=== PATIENT | male | born 1970 | race Caucasian/White ===

== ENCOUNTER 2016-10-03 07:32 | Emergency (ER) | payer OTHER ==
[~2016-10-03] VITALS: Ht 177.8 cm; Wt 123.2 kg
[2016-10-03 07:34] VITALS: TEMP 36.6; Ht 177.8 cm; Wt 123.2 kg
[2016-10-03] MEDS ORDERED: DiphenhydrAMINE HCL 50 MG/ML VIAL IV STA (07:47)
[2016-10-03] MEDS ORDERED: DEXAMETHASONE SOD INJ 10 MG/ML VIAL IV ONE (08:00)
[2016-10-03 08:04] LABS: BASO % 0.3 %; BASO ABS # 0.02 K/uL (0-0.2); COMPLETE YES; EOS % 5.6 %; HEMATOCRIT 44.6 % (42-52); IG% 0.3 %; LYMPH % 31.8 %; LYMPH ABS # 2.45 K/uL (1.2-3.4); MEAN CELL VOLUME 92.5 fL (80-100); MEAN CORPUSCULAR HEMOGLOBIN 31.1 pg (25-34); MEAN CORPUSCULAR HGB CONC 33.6 g/dl (32-36); MEAN PLATELET VOLUME 9.4 fL (7.4-10.4); MONO % 5.6 %; NEUT % 56.4 %; PLATELET COUNT 266 K/uL (130-400); RED BLOOD COUNT 4.82 M/uL (4.7-6.1)
[2016-10-03] MEDS ORDERED: CLON0.5T3 PO (08:12)
[2016-10-03] MEDS ORDERED: CITA20TA9 PO (08:12)
[2016-10-03] MEDS ORDERED: HYDR-5688 PO (08:12)
[2016-10-03 08:21] LABS: BUN/CREATININE RATIO 18.7 (10-20); CALCIUM 9.2 mg/dl (8.5-10.1); CREATININE 0.9 mg/dl (0.60-1.40)
[2016-10-03] MEDS ORDERED: METH4PAK PO (09:11)
--- NOTE | 2016-10-03 09:12 | EMERGENCY ROOM VISIT NOTE ---
History First contact with patient: 07:40 Chief Complaint: THROAT PAIN/INJURY Stated Complaint: SWOLLEN THROAT, CAN'T BREAHTE History of Present Illness The patient is a 46 year old male who presents to the Emergency Room with complaints of swelling uvula. The patient states when he woke up this morning and felt like he had a sore throat. Then approximately an hour later he felt like he had phlegm in his throat but when he looked in his throat he noticed that his uvula was swollen. He states that it is hitting the back of his tongue and he feels like he can't breathe. The patient denies any other upper respiratory symptoms of ear pain, cough, chest tightness, fever. The patient denies any known allergies. The patient's only difference that he ate some [place] food last evening. The patient is not diabetic. Review of Systems 10 system review was performed and was negative unless stated otherwise history of present illness. Past Medical/Surgical History Knee surgery Social History Smoking Status: Never Smoker Marital Status: Housing Status: lives with family Current/Historical Medications Scheduled Citalopram Hydrobromide (Celexa), 20 MG PO QAM Clonazepam (Klonopin), 0.5 MG PO QAM Scheduled PRN Hydrocodone/Acetaminophen 5MG/325MG ([place] 5MG/325MG), 1 TABLET PO Q6 PRN for Pain Allergies Coded Allergies: No Known Allergies (Unverified , 10/03/16) Physical Exam Vital Signs Date Time Temp Pulse Resp B/P Pulse Ox O2 Delivery O2 Flow Rate FiO2 10/03/16 07:34 36.6 90 20 137/96 96 Room Air Physical Exam PHYSICAL EXAM: Vital Signs were reviewed: Reviewed Nurse's notes and agree. Oxygen saturation is 96 % on room air which is normal . GENERAL: 46-year-old male appears in no acute distress. MENTAL STATUS: Alert, oriented, coherent. EARS: Canals clear. TMs good light reflex, no erythema or fluid level noted. NOSE: Nasal mucosa with moderate erythema engorgement. PHARYNX: Tonsils with 1+ edema and erythema. No exudate noted. Uvula with edema and erythema. Airway is adequate. NECK: Supple, non-tender. No lymphadenopathy noted. LUNGS: Clear to auscultation without wheezes rales or rhonchi. CARDIAC: Regular rate and rhythm without murmur. SKIN: No rashes noted. Medical Decision & Procedures Laboratory Results 10/03/16 07:50 Red Blood Count 4.82, Mean Corpuscular Volume 92.5, Mean Corpuscular Hemoglobin 31.1, Mean Corpuscular Hemoglobin Concent 33.6, Mean Platelet Volume 9.4, Neutrophils (%) (Auto) 56.4, Lymphocytes (%) (Auto) 31.8, Monocytes (%) (Auto) 5.6, Eosinophils (%) (Auto) 5.6, Basophils (%) (Auto) 0.3, Neutrophils # (Auto) 4.35, Lymphocytes # (Auto) 2.45, Monocytes # (Auto) 0.43, Eosinophils # (Auto) 0.43, Basophils # (Auto) 0.02 10/03/16 07:50 Test 10/03/16 07:50 White Blood Count 7.70 K/uL (4.8-10.8) Red Blood Count 4.82 M/uL (4.7-6.1) Hemoglobin 15.0 g/dL (14.0-18.0) Hematocrit 44.6 % (42-52) Mean Corpuscular Volume 92.5 fL (80-100) Mean Corpuscular Hemoglobin 31.1 pg (25-34) Mean Corpuscular Hemoglobin Concent 33.6 g/dl (32-36) Platelet Count 266 K/uL (130-400) Mean Platelet Volume 9.4 fL (7.4-10.4) Neutrophils (%) (Auto) 56.4 % Lymphocytes (%) (Auto) 31.8 % Monocytes (%) (Auto) 5.6 % Eosinophils (%) (Auto) 5.6 % Basophils (%) (Auto) 0.3 % Neutrophils # (Auto) 4.35 K/uL (1.4-6.5) Lymphocytes # (Auto) 2.45 K/uL (1.2-3.4) Monocytes # (Auto) 0.43 K/uL (0.11-0.59) Eosinophils # (Auto) 0.43 K/uL (0-0.5) Basophils # (Auto) 0.02 K/uL (0-0.2) RDW Standard Deviation 46.6 fL (36.4-46.3) RDW Coefficient of Variation 13.8 % (11.5-14.5) Immature Granulocyte % (Auto) 0.3 % Immature Granulocyte # (Auto) 0.02 K/uL (0.00-0.02) Anion Gap 12.0 mmol/L (3-11) Est Creatinine Clear Calc Drug Dose 135.0 ml/min Estimated GFR () 118.3 Estimated GFR (Non- 102.1 BUN/Creatinine Ratio 18.7 (10-20) Calcium Level 9.2 mg/dl (8.5-10.1) Medications Administered Medications (Trade) Dose Ordered Sig/Max Route Start Time Stop Time Status Last Admin Dose Admin Dexamethasone Sodium Phosphate (Decadron Inj) 10 mg NOW ONCE IV 10/03/16 08:00 10/03/16 08:01 DC 10/03/16 07:58 10 MG Diphenhydramine HCl (Benadryl Inj) 25 mg NOW STAT IV 10/03/16 07:47 10/03/16 07:50 DC 10/03/16 07:59 25 MG ED Course The patient was evaluated. Rapid strep was negative. Culture is pending. IV access was obtained. CBC and differential and renal profile was ordered. Labs are reviewed and were unremarkable. The patient was given Decadron 10 mg IV and Benadryl 25 mg IV. On reevaluation the patient was feeling slightly better. The patient case was discussed with Dr. Acuña who agrees with treatment plan. The patient was discharged home in stable condition. Medical Decision differential diagnosis include viral pharyngitis, strep pharyngitis, uvulitis Impression Primary Impression: Uvulitis Departure Information Dispostion Home / Self-Care Condition GOOD Prescriptions Methylprednisolone (MEDROL DOSEPAK) 4 Mg Gerard 0 PO DAILY, #1 PKT Prov: Chayo Grady PA-C 10/03/16 Referrals No Doctor, Assigned (PCP) Forms HOME CARE DOCUMENTATION FORM, IMPORTANT VISIT INFORMATION, WORK / SCHOOL INSTRUCTIONS Patient Instructions My [facility] [place] [employer] Additional Instructions Start Medrol Dosepak tomorrow. Benadryl as needed for itch. Call in 24 hour for throat culture results. If you experience any increased throat tightness, shortness of breath return to ER immediately. Follow-up with your family physician on Wednesday for recheck.
[2016-10-03 09:16] VITALS: BP 129/99; PULSE 83; O2SAT 95
== END 2016-10-03 09:20 | disposition home or self-care (01) ==
LOC: C.EDB 07:33
DX: K12.2 Cellulitis and abscess of mouth (principal); Z98.890 Other specified postprocedural states; Z79.899 Other long term (current) drug therapy